=== PATIENT | male | born 2000 | race Two or more races ===

== ENCOUNTER 2022-09-11 15:18 | Emergency (ER) | payer OTHER ==
[~2022-09-11] VITALS: Ht 175.3 cm; Wt 83.9 kg
[~2022-09-11 15:18] MED LIST: OSEL75CA PO
== END 2022-09-11 22:01 | disposition home or self-care (01) ==
LOC: ER 15:18
DX: R10.31 Right lower quadrant pain (principal); Z91.013 Allergy to seafood

== ENCOUNTER 2024-06-09 12:02 | Inpatient (IN) | payer OTHER ==
[~2024-06-09] VITALS: Ht 175.3 cm; Wt 83.9 kg
--- NOTE | 2024-06-09 12:59 | NUR ---
PTE REFIERE DENGUE CON PLAGUETAS EN 36 Y MYCOPLAMA POSITIVO.SE LE ANDREW S/V Y SE UBICA EN BONITA.
[2024-06-09] MEDS ORDERED: 0.9 % SODIUM CHLORIDE 1,000 ML IV STA (13:45)
[2024-06-09] MEDS ORDERED: METHYLPREDNISOLONE SOD SUCC 125 MG VIAL IV STA (13:46)
[2024-06-09] MEDS ORDERED: METHYLPREDNISOLONE SOD SUCC 125 MG VIAL ONE (14:50)
--- NOTE | 2024-06-09 15:01 | NUR ---
SE EDUCA A PACIENTE SOBRE TRATAMEINTO MEDICO EL CUAL AL MOMENTO REFIERE ENTENDER SE REALIZA COLECCION DE MUESTRAS Y ADMINISTRACION DE MEDICAMENTO JACOBY ORDEN MEDICA.
[2024-06-09 15:09] LABS: HEMOGLOBIN 14.8 g/dL (13-16.00); MEAN CELL VOLUME 83.3 fL (80.0-100.00); MEAN CORPUSCULAR HEMOGLOBIN 27.4 pg (27.00-32.0); MEAN CORPUSCULAR HGB CONC 32.9 g/dl (32.0-36.0); RED CELL DISTRIBUTION WIDTH 13.4 % (11.5-14.5)
[2024-06-09 15:30] LABS: ALBUMIN 3.5 gm/dL (3.4-5.0); BILIRUBIN TOTAL 0.36 mg/dL (0.3-1.2); BILIRUBIN,CONJUGATED 0.15 mg/dL (0.0-0.2); BILIRUBIN,UNCONJUGATED 0.21 mg/dL (0.0-0.6); CALCIUM 8.2 mg/dL (8.5-10.1); CREATININE SERUM 0.91 mg/dL (0.70-1.30); GFR 100.71; POTASSIUM 3.42 mEq/L (3.5-5.1); TOTAL PROTEIN 7.5 gm/dL (6.4-8.2)
[2024-06-09 15:33] LABS: PH,URINE 6.5 (5.0-8.0); URINE APPEARANCE Clear; URINE BILIRRUBIN Negative (NEGATIVE); URINE BLOOD Negative; URINE COLOR Yellow; URINE GLUCOSE Negative (NEGATIVE); URINE KETONE Negative (NEGATIVE); URINE LEUKOCYTE Negative; URINE NITRATE Negative; URINE UROBILINOGEN 0.2 E.U./dl
[2024-06-09 15:34] LABS: PLATELET COUNT 30 K/uL (150-450)
[2024-06-09 15:37] LABS: URINE BACTERIA 8.5 uL (0.0-1933); URINE EPITHELIAL CELLS 5.3 uL (0.0-38.8); URINE RBC 5.7 uL (0.0-20.8); URINE WBC 4.2 uL (0.0-23.2)
[2024-06-09 15:48] LABS: URINE CAST 0.58 uL (0.0-1.40); URINE PROTEIN 300 (NEGATIVE)
--- NOTE | 2024-06-09 16:27 | NUR ---
PACIENTE PENDIENTE A CONSULTA CON DR. KALINA POND DE MEDICINA INTERNA.
[2024-06-09] MEDS ORDERED: ACETAMINOPHEN 500 MG GEL..CAP PO PRN (18:15)
[2024-06-09] MEDS ORDERED: ONDANSETRON HCL 4 MG in 0.9 % SODIUM CHLORIDE 50 ML IV PRN (18:15)
[2024-06-09] MEDS ORDERED: 0.9 % SODIUM CHLORIDE 1,000 ML IV SCH (18:15)
[2024-06-09 20:50] VITALS: BP 132/67; O2SAT 98
[2024-06-10 01:13] VITALS: BP 107/59; O2SAT 99
[2024-06-10 07:31] LABS: CALCIUM 8.1 mg/dL (8.5-10.1); CREATININE SERUM 0.74 mg/dL (0.70-1.30); GFR 127.85; POTASSIUM 4.21 mEq/L (3.5-5.1)
[2024-06-10 07:32] LABS: HEMATOCRIT 39.3 % (39.0-48.0); HEMOGLOBIN 13.3 g/dL (13-16.00); MEAN CELL VOLUME 81.2 fL (80.0-100.00); MEAN CORPUSCULAR HEMOGLOBIN 27.5 pg (27.00-32.0); MEAN CORPUSCULAR HGB CONC 33.9 g/dl (32.0-36.0); RED BLOOD COUNT 4.84 M/uL (4.00-6.00); RED CELL DISTRIBUTION WIDTH 13.5 % (11.5-14.5)
[2024-06-10 08:22] LABS: URINE APPEARANCE Clear; URINE BILIRRUBIN Negative (NEGATIVE); URINE BLOOD Negative; URINE COLOR Yellow; URINE GLUCOSE Negative (NEGATIVE); URINE KETONE Negative (NEGATIVE); URINE LEUKOCYTE Negative; URINE NITRATE Negative; URINE PROTEIN 30 (NEGATIVE); URINE UROBILINOGEN 0.2 E.U./dl
[2024-06-10 08:26] LABS: URINE RBC 2.2 uL (0.0-20.8)
[2024-06-10 08:28] VITALS: BP 134/73; O2SAT 98
[2024-06-10 08:52] LABS: URINE BACTERIA 2.4 uL (0.0-1933); URINE EPITHELIAL CELLS 0.4 uL (0.0-38.8); URINE WBC 1.1 uL (0.0-23.2)
[2024-06-10] MEDS ORDERED: PANTOPRAZOLE SODIUM 40 MG/VIAL VIAL IV SCH (09:00)
[2024-06-10] MEDS ORDERED: DIPHENHYDRAMINE HCL 50 MG/ML VIAL 1ML IV NR (09:00)
[2024-06-10 11:49] LABS: PLATELET COUNT 45 K/uL (150-450)
[2024-06-10 11:52] LABS: MANUAL PLATELET COUNT 38
[2024-06-10 16:05] VITALS: BP 115/65; O2SAT 98
[2024-06-10] MEDS ORDERED: DIPHENHYDRAMINE HCL 50 MG/ML VIAL 1ML ONE (18:58)
[2024-06-10] MEDS ORDERED: DIPHENHYDRAMINE HCL 50 MG/ML VIAL 1ML IV ONE (19:00)
[2024-06-11 00:16] VITALS: BP 104/52; O2SAT 97
[2024-06-11] MEDS ORDERED: DIPHENHYDRAMINE HCL 50 MG/ML VIAL 1ML IV PRN (03:00)
[2024-06-11] MEDS ORDERED: DIPHENHYDRAMINE HCL 50 MG/ML VIAL 1ML ONE (03:43)
[2024-06-11 08:17] LABS: HEMATOCRIT 39.9 % (39.0-48.0); HEMOGLOBIN 13.1 g/dL (13-16.00); MEAN CELL VOLUME 83.3 fL (80.0-100.00); MEAN CORPUSCULAR HEMOGLOBIN 27.4 pg (27.00-32.0); MEAN CORPUSCULAR HGB CONC 32.8 g/dl (32.0-36.0); RED BLOOD COUNT 4.79 M/uL (4.00-6.00); RED CELL DISTRIBUTION WIDTH 13.4 % (11.5-14.5)
[2024-06-11 08:22] LABS: PLATELET COUNT 51 K/uL (150-450)
[2024-06-11 09:35] VITALS: BP 115/57; O2SAT 99
[2024-06-11 15:48] VITALS: BP 92/49; O2SAT 97
[2024-06-12 00:41] VITALS: BP 112/64; O2SAT 95
[2024-06-12 06:35] LABS: HEMATOCRIT 36.9 % (39.0-48.0); HEMOGLOBIN 12.6 g/dL (13-16.00); MEAN CELL VOLUME 81.8 fL (80.0-100.00); MEAN CORPUSCULAR HEMOGLOBIN 27.9 pg (27.00-32.0); MEAN CORPUSCULAR HGB CONC 34.2 g/dl (32.0-36.0); RED BLOOD COUNT 4.51 M/uL (4.00-6.00); RED CELL DISTRIBUTION WIDTH 13.8 % (11.5-14.5)
[2024-06-12 06:40] LABS: PLATELET COUNT 95 K/uL (150-450)
[2024-06-12 08:00] VITALS: BP 105/57; O2SAT 97
== END 2024-06-12 22:29 | disposition home or self-care (01) | DRG 866 ==
LOC: ER 12:04 → MEDI 18:30
PROVIDERS: General Practice; ADMIT Internal Medicine; ATTEND Internal Medicine
PROC: BW40ZZZ Ultrasonography of Abdomen (ICD-10-PCS; principal; 2024-06-09)
PROC: 30233R1 Transfusion of Nonautologous Platelets into Peripheral Vein, Percutaneous Approach (ICD-10-PCS; 2024-06-10)
DX: A90 Dengue fever [classical dengue] (principal); D69.6 Thrombocytopenia, unspecified; K06.8 Other specified disorders of gingiva and edentulous alveolar ridge; B34.9 Viral infection, unspecified